=== PATIENT | male | born 1990 | race African-American/Black ===

== ENCOUNTER 2022-02-20 21:10 | Emergency (ER) | payer OTHER ==
[~2022-02-20] VITALS: Ht 170.2 cm; Wt 108.9 kg
--- NOTE | 2022-02-20 22:31 | NUR ---
BIBS C/O "COFFEE GROUND EMESIS" WITH LOWER ABDOMINAL PAIN X1 DAY SEEN AT URGENT CARE TODAY GIVEN NAUSEA/ULCER MEDS WITH SOME RELIEF. PATIENT ALERT AND ORIENTED X3. AMBULATORY WITH NON LABORED BREATHING IN BED 02 AWAITING MD ZAMORA.
[2022-02-20] MEDS ORDERED: MORPHINE SULFATE INJ 2 MG/ML DISP.SYRIN ONE (22:51)
[2022-02-20] MEDS ORDERED: ONDANSETRON HCL/PF 4 MG/2 ML VIAL ONE (22:51)
[2022-02-20] MEDS ORDERED: PANTOPRAZOLE 40 MG VIAL ONE (22:51)
--- NOTE | 2022-02-20 22:52 | NUR ---
PT BEING TRANSPORTED TO CT SCAN [facility]IA [facility]
[2022-02-20 22:54] LABS: BASOPHILS % (AUTO) 0.3 % (0.0-2.0); EOSINOPHILS % (AUTO) 0.5 % (0.0-6.0); HEMATOCRIT 46 % (39-51); HEMOGLOBIN 14.9 g/dL (13.5-17.5); LYMPHOCYTES # (AUTO) 0.5 K/uL (0.8-4.8); LYMPHOCYTES % (AUTO) 11.3 % (20.0-44.0); MEAN CORPUSCULAR HGB CONC 32 g/dl (31.0-36.0); MEAN CORPUSCULAR VOLUME 86 fL (80-96); MONOCYTES # (AUTO) 0.4 K/uL (0.1-1.30); MONOCYTES % (AUTO) 7.6 % (2.0-12.0); NEUTROPHILS # (AUTO) 3.7 K/uL (1.8-8.9); NEUTROPHILS % (AUTO) 80.3 % (43.0-81.0); PLATELET COUNT (AUTO) 254 K/uL (150-450); RED BLOOD CELL COUNT(AUTO) 5.36 MIL/uL (4.5-6.0); WHITE BLOOD COUNT (AUTO) 4.6 K/uL (4.3-11.0)
[2022-02-20 23:06] LABS: CALCIUM, SERUM 8.6 mg/dL (8.5-10.1); CREATININE 1.2 mg/dL (0.6-1.3); POTASSIUM 3.5 mmol/L (3.5-5.1)
[2022-02-20 23:11] LABS: ALBUMIN 3.5 g/dL (3.4-5.0); BILIRUBIN,DIRECT 0.2 mg/dL (0.0-0.2); BILIRUBIN,TOTAL 0.8 mg/dL (0.2-1.0); TOTAL PROTEIN, SERUM 7.4 g/dL (6.4-8.2)
[2022-02-20] MEDS: IV NS 0.9% 1,000 ML BAG IV ONE (23:15)
[2022-02-20] MEDS: ONDANSETRON HCL/PF 4 MG/2 ML VIAL IVP ONE (23:15)
[2022-02-20] MEDS: MORPHINE SULFATE INJ 2 MG/ML DISP.SYRIN IV ONE (23:15)
[2022-02-20] MEDS: PANTOPRAZOLE 40 MG VIAL IV ONE (23:15)
--- NOTE | 2022-02-21 00:02 | NUR ---
Patient discharged to home in stable condition. Written and verbal after care instructions given. Patient verbalizes understanding of instruction. IV line removed and PT ambulatory with steady gait.
[2022-02-21 00:12] VITALS: BP 130/90
== END 2022-02-21 00:12 | disposition home or self-care (01) ==
LOC: ER 21:24
DX: K92.0 Hematemesis (principal); R10.30 Lower abdominal pain, unspecified; R10.13 Epigastric pain
CPT/HCPCS: 36415; 74176; 80048; 80076; 83690; 85025; 85730; 96361; 96374; 96375; 99284; C9113; J2270; J2405; J7030